=== PATIENT | female | born 1965 | race Caucasian/White ===

== ENCOUNTER 2017-09-17 23:04 | Emergency (ER) | payer BC ==
--- NOTE | 2017-09-17 23:18 | EDM.PDOC ---
ED HPI GENERAL MEDICAL PROBLEM - General Chief Complaint: Skin Complaint Stated Complaint: RASH ON HANDS AND LEGS Time Seen by Provider: 09/17/17 23:18 - History of Present Illness INITIAL COMMENTS - FREE TEXT/NARRATIVE: 52-year-old female presents emergency room with a rash on her forearms lower legs hands and feet. This is been present for over a month progressively getting worse today the patient tried 4 beers to make it better. This did not help. She was treated for a similar rash with topical cream that she used twice daily or couple weeks, about 7 months ago this did help. The patient complains mostly of some discomfort with a rashes but mostly itching. The patient denies any other difficulties no change in in her habits with voiding no breathing difficulties or shortness of breath she has not had any increased edema or swelling. She is otherwise doing well. Bilateral Upper Arm Pain Score (Numeric/FACES): 8 - Related Data Allergies Allergy/AdvReac Type Severity Reaction Status Date / Time No Known Allergies Allergy Verified 09/17/17 23:17 Home Meds: Home Meds Naproxen [Naprosyn] 500 mg PO Q12HR #14 tab 09/27/14 [Rx] Past Medical History - Past Health History Medical/Surgical History: Denies Medical/Surgical History Social & Family History - Tobacco Use Smoking Status *Q: Current Every Day Smoker Years of Tobacco use: 30 - Alcohol Use Days Per Week of Alcohol Use: 7 Number of Drinks Per Day: 4 Total Drinks Per Week: 28 - Recreational Drug Use Recreational Drug Use: No ED ROS GENERAL - Review of Systems Review Of Systems: See Below Constitutional: Reports: No Symptoms HEENT: Reports: No Symptoms Respiratory: Reports: No Symptoms Cardiovascular: Reports: No Symptoms Endocrine: Reports: No Symptoms GI/Abdominal: Reports: No Symptoms : Reports: No Symptoms Musculoskeletal: Reports: No Symptoms Skin: Reports: Pruritis, Rash. Denies: No Symptoms Neurological: Reports: No Symptoms ED EXAM, SKIN/RASH Exam: See Below Exam Limited By: No Limitations General Appearance: Alert, No Apparent Distress Eye Exam: Bilateral Eye: Normal Inspection Ears: Normal External Exam, Normal Canal, Hearing Grossly Normal, Normal TMs Nose: Normal Inspection, Normal Mucosa, No Blood Throat/Mouth: Normal Inspection, Normal Lips, Normal Teeth, Normal Gums, Normal Oropharynx, Normal Voice, No Airway Compromise Head: Atraumatic, Normocephalic Neck: Normal Inspection, Supple, Non-Tender, Full Range of Motion Respiratory/Chest: No Respiratory Distress, Lungs Clear, Normal Breath Sounds Cardiovascular: Regular Rate, Rhythm, No Edema, No Murmur Neurological: Alert, Oriented, Normal Cognition Skin: Other (He has a blotchy rash over her forearms lower legs hands and feet most consistent with advanced stage of eczema.) Course - Vital Signs Last Recorded V/S: Last Vital Signs Temp 36.4 C 09/17/17 23:13 Pulse 82 09/17/17 23:13 Resp 18 09/17/17 23:13 BP 138/82 09/17/17 23:13 Pulse Ox 100 09/17/17 23:13 - Re-Assessments/Exams Free Text/Narrative Re-Assessment/Exam: 09/18/17 00:21 Rash probably represents eczema I cannot be certain the possibility of underlying systemic illness cannot be excluded discussed laboratory evaluation the patient declines this. She basically wants a quick and easy treatment and then to be discharged home at this time. Patient will be given 25 mg of Benadryl 40 mg of Pepcid start her on 1% hydrocortisone cream. She'll continue the hydrocortisone 1% at this time the patient is doing better after getting hydrocortisone 1% applied and getting the Benadryl and famotidine. She is insistent on going home. Departure - Departure Time of Disposition: 00:27 Disposition: Home, Self-Care 01 Clinical Impression: Eczema, Pruritus - Discharge Information Referrals: PCP,None [Primary Care Provider] - Forms: ED Department Discharge Additional Instructions: Return to the emergency room with any questions problems worsening symptoms. Use 1% hydrocortisone cream over the red areas 3 times a day. Use Eucerin cream or Lubriderm 4-5 times daily and after you wash your hands or extremities. Follow-up at the Hospital clinic on Friday or Friday for recheck. [phone]
[2017-09-17] MEDS ORDERED: Famotidine 20 MG Tab PO ONE (23:53)
[2017-09-17] MEDS ORDERED: diphenhydrAMINE 25 MG Cap PO ONE (23:53)
[2017-09-17] MEDS ORDERED: Hydrocortisone 1% Crm 30 GM Tube TOP ONE (23:54)
== END 2017-09-18 00:34 | disposition home or self-care (01) ==
LOC: JD.ED 23:04
DX: L30.9 Dermatitis, unspecified (principal); L29.9 Pruritus, unspecified; F17.210 Nicotine dependence, cigarettes, uncomplicated
CPT/HCPCS: 99282; A9270

== ENCOUNTER 2023-03-30 08:01 | Emergency (ER) | payer BC ==
[2023-03-30] MEDS ORDERED: Acetaminophen/HYDROcodone 325-5 MG Tab PO ONE ×2 (08:27)
== END 2023-03-30 09:47 | disposition home or self-care (01) ==
LOC: JD.ED 08:01
DX: S42.211A Unspecified displaced fracture of surgical neck of right humerus, initial encounter for closed fracture (principal); S42.251A Displaced fracture of greater tuberosity of right humerus, initial encounter for closed fracture; W07.XXXA Fall from chair, initial encounter
CPT/HCPCS: 73060; 99283; A9270